=== PATIENT | female | born 1975 | race Caucasian/White ===

== ENCOUNTER 2016-11-12 15:55 | Emergency (ER) | payer OTHER ==
[~2016-11-12] VITALS: Ht 167.6 cm; Wt 61.2 kg
[~2016-11-12 15:55] MED LIST: CIPRO 500MG TA500 MG PO; PREDNISONE10 MG PO; VICODIN5-300 PO; ZOFRAN ODT4 MG PO
[2016-11-12 16:08] VITALS: BP 119/84
--- NOTE | 2016-11-12 16:42 | ED NECK/BACK PAIN COMPLAINT ---
History of Present Illness General Chief Complaint: Low Back Pain/Injury Stated Complaint: FELL THIS AM BACK PAIN Source: patient Exam Limitations: no limitations Vital Signs & Intake/Output Vital Signs & Intake/Output Vital Signs Date Time Temp Pulse Resp B/P Pulse O2 O2 Flow FiO2 Ox Delivery Rate 11/12 1703 Room Air 11/12 1608 98.2 74 18 119/84 98 Room Air Allergies Coded Allergies: MDX - Amoxicillin (AMOXICILLIN) (Intermediate, RASH 10/25/14) Triage Note: STATES THAT SHE SLIPPED ON ICE THIS AM AND FELL ONTO HER BUTTOCKS, COMPLAINS OF TAIL BONE PAIN. TOOK ADVIL Triage Nurses Notes Reviewed? yes Onset: Gradual Duration: hour(s): (6) Timing: no prior history Quality/Severity: moderate Location: coccyx Radiation: none Context: fall/near fall Method of Injury: fall Loss of Consciousness: no loss of consciousness Modifying Factors: immobilization : No Patient currently breastfeeds: No HPI: Patient is a 41-year-old female presenting to the emergency department complaining of coccyx pain after slipping down a few steps and landing directly on her toxic. Denies head injury or loss of consciousness. Denies any other pain. No apparent lower extremity pain. Denies numbness or tingling. Pain is worse with movement and palpation. She took Advil approximately 4 hours ago which only helped a little red. Denies any rectal bleeding. No urinary symptoms. Denies any urinary incontinence or retention. She was able to get up after fall. No neck pain. No upper back pain. (TISHA BUNCH,CRISTINO) Reconcile Medications Prednisone 10 MG TAB 0 TAB PO DAILY BELLS PALSY 6 TABS A DAY X 5 DAYS 5 TABS A DAY X 1 DAYS 4 TABS A DAY X 1 DAYS 3 TAB A DAY X 1 DAY 2 TABS PO X 1 DAYS 1 TAB PO X 1 DAY Tylenol With Codeine (Tylenol With Codeine #3 Tablet) 300 MG-30 MG TABLET 1 TAB PO BIDP PRN pain (ARNALDO KWONG,ABHILASH) Past History Travel History Traveled to [place] past 21 day No Medical History Any Pertinent Medical History? 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 No (CRISTINO PALOMINO) Review of Systems Review of Systems Constitutional: Reports: no symptoms. Comments Review of systems: See HPI, All other systems negative. Constitutional, no chills fever or weight loss HEENT: No visual changes no sore throat no congestion Cardiovascular: No chest pain ,palpitation , orthopnea or ankle swelling Skin, no jaundice no rashes Respiratory: No dyspnea cough sputum or hemoptysis GI: No nausea no vomiting : No dysuria No hematuria Muscle skeletal:no neck pain, Neurologic: No numbness no confusion Psych: No stress anxiety or depression,. Heme/endocrine: No bruising no bleeding no polyuria or polydipsia Immunology: No splenectomy or history of AIDS (CRISTINO PALOMINO) Physical Exam Physical Exam General Appearance: well developed/nourished, no apparent distress, alert, awake , comfortable Neck: normal inspection, supple, full range of motion, normal alignment Comments: Well-developed well-nourished person in no acute distress HEENT: Pupils equally round and reactive to light and accommodation. Nose is atraumatic. Neck: Supple, normal range of motion without pain or tenderness Back: Tender to palpation along with toxic, no ecchymosis, no edema. Negative straight leg raise bilaterally. Near full range of motion of back somewhat limited secondary to pain. Cardiovascular: Regular rate and rhythms no murmurs rubs or gallops, normal JVP Respiratory: Chest nontender. No respiratory distress.breath sounds clear to auscultation bilaterally Extremity: No edema Neuro: Alert oriented x3, motor sensory normal, patellar reflexes are 2+ bilaterally. Skin: No appreciable rash on exposed skin, skin is warm and dry. Psych: Mood and affect is normal, memory and judgment is normal. (CRISTINO PALOMINO) Progress Differential Diagnosis: coccyx fracture, coccyx dislocation, contusion Plan of Care: Orders Procedure Date/time Status XRY-SACRUM AND COCCYX 11/12 1640 Active Diagnostic Imaging: Viewed by Me: Radiology Read. Discussed w/RAD: Radiology Read. Radiology Impression: PATIENT: JENNY ECHAVARRIA PRESENT AGE: 41 PATIENT ACCOUNT NO: [id number] : 75 LOCATION: [facility] ORDERING PHYSICIAN: CRISTINO BUNCH SERVICE DATE: 11/12/16 EXAM TYPE: RAD - XRY-SACRUM AND COCCYX EXAMINATION: XR SACRUM AND COCCYX CLINICAL INFORMATION: Fall. Pain. COMPARISON: None TECHNIQUE: 2 views of the sacrum and 2 views of the coccyx were obtained. FINDINGS: There are no fractures. No bone, joint or soft tissue abnormality is demonstrated. IMPRESSION: Unremarkable examination. 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 She' ll go for x-ray. pt informed of xray results. (TISHA BUNCH,CRISTINO) Departure Departure Time of Disposition: 1743 Disposition: HOME OR SELF CARE Condition: Stable Clinical Impression Primary Impression: Coccyx contusion Referrals: LUCILLE KWONG,ANT Mclaughlin (PCP/Family) Additional Instructions: follow up with pcp. call to make appt. apply ice to affected area. take motrin or tylenol. return for worsening symtpoms. Departure Forms: Customer Survey General Discharge Information (CRISTINO PALOMINO) Departure Prescriptions: Current Visit Scripts Tylenol With Codeine (Tylenol With Codeine #3 Tablet) 1 TAB PO BIDP PRN pain #8 TAB PA/CASINO SHIFT MANAGER Co-Sign Statement Statement: ED Attending supervision documentation- [] I saw and evaluated the patient. I have also reviewed all the pertinent lab results and diagnostic results. I agree with the findings and the plan of care as documented in the PA's/CASINO SHIFT MANAGER's documentation. x I have reviewed the ED Record and agree with the PA's/CASINO SHIFT MANAGER's documentation. [] Additions or exceptions (if any) to the PAs/CASINO SHIFT MANAGER's note and plan are summarized below: [] (ARNALDO KWONG,ABHILASH)
--- NOTE | 2016-11-12 17:46 | RADIOLOGY REPORT ---
EXAMINATION: XR SACRUM AND COCCYX CLINICAL INFORMATION: Fall. Pain. COMPARISON: None TECHNIQUE: 2 views of the sacrum and 2 views of the coccyx were obtained. FINDINGS: There are no fractures. No bone, joint or soft tissue abnormality is demonstrated. IMPRESSION: Unremarkable examination.
[2016-11-12] MEDS ORDERED: TYLENOL WITH C1 EACH PO (17:57)
== END 2016-11-12 17:40 ==
LOC: ERH 15:55
DX: S30.0XXA Contusion of lower back and pelvis, initial encounter (principal); W10.9XXA Fall (on) (from) unspecified stairs and steps, initial encounter
CPT/HCPCS: 72220; 96372; J1885